=== PATIENT | female | born 1965 | race Caucasian/White ===

== ENCOUNTER 2017-07-25 10:34 | Emergency (ER) | payer BC ==
[2017-07-25 10:50] VITALS: BP 158/87
--- NOTE | 2017-07-25 10:54 | EDM.PDOC ---
ED HPI GENERAL MEDICAL PROBLEM - General Chief Complaint: Back Pain or Injury Stated Complaint: BACK PAIN Time Seen by Provider: 07/25/17 10:48 Source of Information: Reports: Patient History Limitations: Reports: No Limitations - History of Present Illness INITIAL COMMENTS - FREE TEXT/NARRATIVE: HISTORY AND PHYSICAL: []52-year-old female presenting with right lower back pain History of Present Illness: []Patient had been getting laundry of with a basket and twisted and felt the pain instantly yesterday Patient was seen in [place] emergency department yesterday given a shot and a tablet Her discharge instructions tell her to take Flexeril every 8 hours prescription must have been sent to [facility] but she has not picked that up Review of Systems: As per history of present illness and below otherwise all systems reviewed and negative. Past medical history: As per history of present illness and as reviewed below otherwise noncontributory. Surgical history: As per history of present illness and as reviewed below otherwise noncontributory. Social history: No reported history of drug or alcohol abuse. Family history: As per history of present illness and as reviewed below otherwise noncontributory. Physical exam: Alert very pleasant woman who is speaking in full sentences without any shortness of breath HEENT: Atraumatic, normocehpalic, pupils reactive, negative for conjunctival pallor or scleral icterus, mucous membranes moist, throat clear, neck supple, nontender, trachea midline. Lungs: Clear to auscultation, breath sounds equal bilaterally, chest non tender. Heart: S1S2, regular, negative for clicks, rubs, or JVD. Abdomen: Soft, nondistended, nontender. Negative for masses or hepatossplenmegaly. Positive for right costovertebral tenderness that wraps around to the right lower abdomen Pelvis: Stable nontender. Genitourinary: Deferred. Rectal: Deferred Extremities: Atraumatic, negative for cords or calf pain. Neurovascular unremarkable. Neuro: Awake, alert, oriented. Cranial nerves II through XII unremarkable. Cerebellum unremarkable. Motor and sensory unremarkable throughout. Exam nonfocal. Diagnostics: [] Therapeutics: []Norflex IM Toradol 60 IM Impression: []muscle strain Plan: [] Definitive disposition and diagnosis as appropriate pending reevaluation and review of above. 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, Other (see below) (Biofreeze) Right Lower Back Pain Score (Numeric/FACES): 10 - Related Data Allergies Allergy/AdvReac Type Severity Reaction Status Date / Time naproxen sodium Allergy Swelling Verified 07/25/17 10:50 [From Anaprox] watermelon Allergy Anaphylactic Verified 07/25/17 10:50 Shock Cat Scan Dye Allergy Confusion Uncoded 07/25/17 10:50 Some adhesive tapes Allergy Itching Uncoded 07/25/17 10:50 Home Meds: Home Meds Lisinopril 10 mg PO DAILY 08/29/14 [History] Glutathione [l-Glutathione] 1 dose PO DAILY 11/20/14 [History] Diclofenac Sodium [IJD: Diclofenac Sodium] 75 mg PO .TWICE DAILY W MEALS #20 tab.ec 07/25/17 [Rx] Past Medical History Other HEENT History: wears glasses/contacts Other Respiratory History: hx sleep apnea, does not use CPAP, states better since wt loss Other Musculoskeletal History: spinal stenosis Other Endocrine/Metabolic History: states does not have diabetes anymore since wt loss Other Dermatologic History: rosacia Social & Family History - Tobacco Use Smoking Status *Q: Current Every Day Smoker - Alcohol Use Days Per Week of Alcohol Use: 7 Number of Drinks Per Day: 2 Total Drinks Per Week: 14 - Recreational Drug Use Recreational Drug Use: No Drug Use in Last 12 Months: No ED ROS GENERAL - Review of Systems Review Of Systems: ROS reveals no pertinent complaints other than HPI. ED EXAM,LOWER BACK PAIN/INJURY - Physical Exam Exam: See Below (see dictation) Course - Vital Signs Last Recorded V/S: Last Vital Signs Temp 36.3 C 07/25/17 10:47 Pulse 98 07/25/17 10:47 Resp 20 07/25/17 10:47 BP 158/87 H 07/25/17 10:47 Pulse Ox 98 07/25/17 10:47 - Orders/Labs/Meds Orders: Active Orders 24 hr Category Date Time Status Orphenadrine [Norflex] Med 07/25/17 11:00 Active 60 mg IM Q12H Medication Orders Orphenadrine Citrate (Norflex) 60 mg IM Q12H DAVID Last Admin: 07/25/17 11:02 Dose: 60 mg Meds: Medications Generic Name Dose Route Start Last Admin Trade Name Freq PRN Reason Stop Dose Admin Orphenadrine Citrate 60 mg 07/25/17 11:00 07/25/17 11:02 Norflex IM 60 mg Q12H DAVID Administration Discontinued Medications Generic Name Dose Route Start Last Admin Trade Name Freq PRN Reason Stop Dose Admin Ketorolac Tromethamine 60 mg 07/25/17 10:56 07/25/17 11:03 Toradol IM 07/25/17 10:57 60 mg ONETIME ONE Administration Departure - Departure Time of Disposition: 11:17 Disposition: Home, Self-Care 01 Condition: Good Clinical Impression: Low back strain Qualifiers: Encounter type: subsequent encounter Qualified Code(s): S39.012D - Strain of muscle, fascia and tendon of lower back, subsequent encounter - Discharge Information Prescriptions: Diclofenac Sodium [IJD: Diclofenac Sodium] 75 mg PO .TWICE DAILY W MEALS #20 tab.ec Instructions: Muscle Strain, [id number] Referrals: PCP,None [Primary Care Provider] - Forms: ED Department Discharge Additional Instructions: The following information is given to patients seen in the emergency department who are being discharged to home. This information is to outline your options for follow-up care. We provide all patients seen in our emergency department with a follow-up referral. The need for follow-up, as well as the timing and circumstances, are variable depending upon the specifics of your emergency department visit. If you don't have a primary care physician on staff, we will provide you with a referral. We always advise you to contact your personal physician following an emergency department visit to inform them of the circumstance of the visit and for follow-up with them and/or the need for any referrals to a consulting specialist. The emergency department will also refer you to a specialist when appropriate. This referral assures that you have the opportunity for followup care with a specialist. All of these measure are taken in an effort to provide you with optimal care, which includes your followup. Under all circumstances we always encourage you to contact your private physician who remains a resource for coordinating your care. When calling for followup care, please make the office aware that this follow-up is from your recent emergency room visit. If for any reason you are refused follow-up, please contact the [facility] emergency department at and asked to speak to the emergency department charge nurse. You have a muscle strain to your lower back You were given Toradol while in the emergency department Muscle relaxant of Norflex was given Prescription were sent to [facility] Follow-up with your primary care in 2 days If not improving may need to call therapy Note to be off work for 24 hours Return to emergency room as needed as discussed and directed - My Orders Last 24 Hours: My Active Orders 07/25/17 11:00 Orphenadrine [Norflex] 60 mg IM Q12H - Assessment/Plan Last 24 Hours: My Active Orders 07/25/17 11:00 Orphenadrine [Norflex] 60 mg IM Q12H
[2017-07-25] MEDS ORDERED: Ketorolac 60 MG/2 ML SDV IM ONE (10:56)
== END 2017-07-25 11:48 | disposition home or self-care (01) ==
LOC: MW.ED 10:34
DX: S39.012A Strain of muscle, fascia and tendon of lower back, initial encounter (principal); F17.210 Nicotine dependence, cigarettes, uncomplicated; X50.1XXA Overexertion from prolonged static or awkward postures, initial encounter; Z88.5 Allergy status to narcotic agent; Z91.018 Allergy to other foods; Z91.048 Other nonmedicinal substance allergy status; Z79.899 Other long term (current) drug therapy
CPT/HCPCS: 96372; 99283; J1885; J2360; 99282

== ENCOUNTER 2019-04-27 07:18 | Day surgery (SDC) | payer BC ==
[~2019-04-27 07:18] MED LIST: Lactated Ringers 1,000 ML IV SCH
[2019-04-27] MEDS ORDERED: Glycopyrrolate 0.2 MG/ML SDV ONE (07:33)
[2019-04-27] MEDS ORDERED: Propofol 200 MG/20 ML SDV ONE ×2 (07:33→08:43)
[2019-04-27] MEDS ORDERED: Midazolam 1 MG/ML 2 ML SDV ONE (07:33)
[2019-04-27] MEDS ORDERED: Lidocaine 2% 5 ML SDV ONE (07:33)
--- NOTE | 2019-04-27 08:03 | PCM.PREANE ---
Preanesthetic Assessment - Anesthesia/Transfusion/Family Hx Other Type of Anesthesia Reaction Comment: "I woke up very emotional after D&C" Family History of Anesthesia Reaction: No Transfusion History: No Prior Transfusion(s) - Review of Systems General: No Symptoms Pulmonary: No Symptoms Cardiovascular: No Symptoms Neurological: No Symptoms Other: Reports: None - Physical Assessment NPO Status Date: 04/26/19 Height: 5 ft 5 in Weight: 87.09 kg ASA Class: 2 Mental Status: Alert & Oriented x3 Airway Class: Mallampati = 2 Dentition: Reports: Normal Dentition ROM/Head Extension: Full Lungs: Clear to Auscultation, Normal Respiratory Effort Cardiovascular: Regular Rate, Regular Rhythm - Allergies Allergies/Adverse Reactions: Allergies Allergy/AdvReac Type Severity Reaction Status Date / Time Iodinated Contrast Media Allergy Confusion Verified 04/27/19 07:56 naproxen sodium Allergy Swelling Verified 04/27/19 07:56 [From Anaprox] watermelon Allergy Anaphylactic Verified 04/27/19 07:56 Shock Some adhesive tapes Allergy Mild Itching Uncoded 04/27/19 07:57 - Blood Blood Available: No - Anesthesia Plan Pre-Op Medication Ordered: None - Acknowledgements Anesthesia Type Planned: General Anesthesia Pt an Appropriate Candidate for the Planned Anesthesia: Yes Alternatives and Risks of Anesthesia Discussed w Pt/Guardian: Yes Pt/Guardian Understands and Agrees with Anesthesia Plan: Yes PreAnesthesia Questionnaire HEENT History: Reports: Other (See Below) Other HEENT History: wears glasses/contacts Cardiovascular History: Reports: Hypertension Respiratory History: Reports: Other (See Below) Other Respiratory History: hx sleep apnea, does not use CPAP, states better since wt loss Gastrointestinal History: Reports: Colon Polyp, GERD Genitourinary History: Reports: None Musculoskeletal History: Reports: Arthritis Other Musculoskeletal History: spinal stenosis Neurological History: Reports: Concussion Psychiatric History: Reports: Anxiety, Depression, PTSD Endocrine/Metabolic History: Reports: Obesity/BMI 30+ Other Endocrine/Metabolic History: type II diabetes in the past, does not have diabetes anymore since wt loss Hematologic History: Reports: None Immunologic History: Reports: None Oncologic (Cancer) History: Reports: None Dermatologic History: Reports: Other (See Below) Other Dermatologic History: rosacia - Past Surgical History Head Surgeries/Procedures: Reports: None HEENT Surgical History: Reports: Oral Surgery, Tonsillectomy Cardiovascular Surgical History: Reports: None Respiratory Surgical History: Reports: None GI Surgical History: Reports: Colonoscopy, EGD Female Surgical History: Reports: D&C Endocrine Surgical History: Reports: None Neurological Surgical History: Reports: None Musculoskeletal Surgical History: Reports: Arthroscopic Knee Oncologic Surgical History: Reports: None Dermatological Surgical History: Reports: None - SUBSTANCE USE Smoking Status *Q: Current Every Day Smoker Tobacco Use Within Last Twelve Months: Vaping - HOME MEDS Home Medications: Home Meds Lisinopril 10 mg PO DAILY 08/29/14 [History] Kratom 4 tab PO DAILY 04/23/19 [History] - CURRENT (IN HOUSE) MEDS Current Meds: Current Medications Lactated Ringer's (Ringers, Lactated) 1,000 mls @ 125 mls/hr IV [facility] Last Admin: 04/27/19 07:54 Dose: 125 mls/hr Discontinued Medications Glycopyrrolate (Robinul) Confirm Administered Dose 0.2 mg .ROUTE .STK-MED ONE Stop: 04/27/19 07:34 Lidocaine (Xylocaine-Mpf 2%) Confirm Administered Dose 5 ml .ROUTE .STK-MED ONE Stop: 04/27/19 07:34 Midazolam HCl (Versed 1 Mg/Ml) Confirm Administered Dose 2 mg .ROUTE .STK-MED ONE Stop: 04/27/19 07:34 Propofol (Diprivan 20 Ml) Confirm Administered Dose 400 mg .ROUTE .STK-MED ONE Stop: 04/27/19 07:34
[2019-04-27] MEDS ORDERED: Phenylephrine/Normal Saline 100 MCG/ML 10 ML Syringe ONE (08:42)
--- NOTE | 2019-04-27 09:06 | PCM.OPNOTE ---
- General Post-Op/Procedure Note Date of Surgery/Procedure: 04/27/19 Operative Procedure(s): Esophagogastroduodenoscopy with gastric biopsies. Colonoscopy. Pre Op Diagnosis: Progressive gastroesophageal reflux disease. Personal history of colon polyps. Post-Op Diagnosis: Mild chronic gastritis. No esophagitis or hiatal hernia. No evidence of colonic neoplasia. Anesthesia Technique: MAC (ASA II) Primary Surgeon: Rigo Nunez Condition: Good Free Text/Narrative:: DICTATION [id number] CPT CODE 98027/[id number]
--- NOTE | 2019-04-27 09:09 | PCM.POSTAN ---
POST ANESTHESIA ASSESSMENT - MENTAL STATUS Mental Status: Alert, Oriented - VITAL SIGNS Vital Signs: Last Vital Signs Temp 97.2 F 04/27/19 08:56 Pulse 58 L 04/27/19 09:06 Resp 24 H 04/27/19 09:06 BP 92/49 L 04/27/19 09:06 Pulse Ox 95 04/27/19 09:06 - RESPIRATORY Respiratory Status: Respiratory Rate WNL, Airway Patent, O2 Saturation Stable - CARDIOVASCULAR CV Status: Pulse Rate WNL, Blood Pressure Stable - GASTROINTESTINAL GI Status: No Symptoms - POST OP HYDRATION Hydration Status: Adequate & Stable
--- NOTE | 2019-04-27 09:09 | PCM48HPAN ---
Post Anesthesia Note - EVALUATION WITHIN 48HRS OF ANESTHETIC Vital Signs in Normal Range: Yes Patient Participated in Evaluation: Yes Respiratory Function Stable: Yes Airway Patent: Yes Cardiovascular Function Stable: Yes Hydration Status Stable: Yes Pain Control Satisfactory: Yes Nausea and Vomiting Control Satisfactory: Yes Mental Status Recovered: Yes Vital Signs: Last Vital Signs Temp 97.2 F 04/27/19 08:56 Pulse 58 L 04/27/19 09:06 Resp 24 H 04/27/19 09:06 BP 92/49 L 04/27/19 09:06 Pulse Ox 95 04/27/19 09:06
[2019-04-27] MEDS ORDERED: Lactated Ringers 1,000 ML IV SCH (09:15)
[2019-04-27 11:55] VITALS: BP 100/57; PULSE 57
--- NOTE | 2019-04-27 15:48 | OR ---
SURGEON: Rigo Nunez M.D. DATE OF PROCEDURE: 04/27/2019 OPERATION PERFORMED: Esophagogastroduodenoscopy with biopsy. PRIMARY SURGEON: Rigo Nunez MD. ANESTHESIA: MAC. ASA CLASSIFICATION: II. PREOPERATIVE DIAGNOSIS: Chronic progressive gastroesophageal reflux disease. POSTOPERATIVE DIAGNOSES: 1. Mild chronic gastritis. 2. No evidence of hiatal hernia or esophagitis. DESCRIPTION OF PROCEDURE: The patient was taken to the endoscopy room and positioned on the endoscopy table in the left lateral decubitus position. Time-out was called for appropriate identification of the patient and procedure. Monitored anesthesia care was provided. A bite-block was placed between the patient's teeth. The gastroscope was inserted through the bite-block into the oropharynx and advanced without difficulty through the esophagus and stomach into the duodenum. The duodenum shows no acute inflammatory changes or ulcerations. The stomach does show a mild-appearing chronic gastritis. No acute inflammatory changes or ulcerations were noted. The distal stomach was biopsied to look for the presence of Helicobacter pylori. The gastroscope was retroflexed to visualize the proximal stomach. No hiatal hernia was noted from below. No inflammatory changes or ulcerations were noted proximally. The gastroscope was then straightened and slowly withdrawn carefully visualizing the greater and lesser curvatures. Again, no ulcerations were noted. No gastric polyps were encountered. The GE junction is sharply defined at 36 cm from the incisors. No inflammatory changes were noted in the distal esophagus. There did not appear to be any esophageal erosions. The mucosa appeared quite healthy. The esophagus demonstrates good contractility. No mid or proximal lesions were identified. The vocal cords were visualized as the scope was withdrawn. The vocal cords moved symmetrically and no vocal cord lesions were identified. The gastroscope was then removed. The patient tolerated this portion of the procedure well. Following colonoscopy, she was taken to recovery room in stable condition. PASTOR / RONI /[id number]
--- NOTE | 2019-04-27 16:00 | OR ---
SURGEON: Rigo Nunez M.D. DATE OF PROCEDURE: 04/27/2019 OPERATION PERFORMED: Colonoscopy. PRIMARY SURGEON: Rigo Nunez MD. ANESTHESIA: MAC. ASA CLASSIFICATION: II. PREOPERATIVE DIAGNOSIS: Personal history of colon polyps. POSTOPERATIVE DIAGNOSIS: No evidence of neoplasia. DESCRIPTION OF PROCEDURE: With the patient having completed esophagogastroduodenoscopy, she was maintained in the left lateral decubitus position. The colonoscope was inserted into the rectum and advanced with minimal difficulty to the cecum. The cecum was identified by internal landmarks and external pressure. The colonoscope was retroflexed to visualize the ascending colon from below, then straightened and slowly withdrawn. Cecum, ascending colon, hepatic flexure, transverse colon, splenic flexure, descending colon, sigmoid colon, and rectum were very well visualized. No tumors, polyps, diverticula, or angiodysplastic changes were noted anywhere in the lower gastrointestinal tract. The prep was excellent. Visualization was very good. Once the colonoscope was withdrawn to the rectum, it was retroflexed to visualize the anal orifice from above. Again, no tumors or polyps were seen. There were no acute hemorrhoidal changes. The colonoscope was then straightened, the rectum aspirated, and the colonoscope removed. The patient tolerated the procedure well and was taken to recovery room in stable condition. PASTOR / RONI /[id number]
== END 2019-04-27 09:30 | disposition home or self-care (01) ==
LOC: MW.SDS 07:18
PROVIDERS: ATTEND Surgery
DX: Z12.11 Encounter for screening for malignant neoplasm of colon (principal); K29.50 Unspecified chronic gastritis without bleeding; K21.9 Gastro-esophageal reflux disease without esophagitis; I10 Essential (primary) hypertension; E11.9 Type 2 diabetes mellitus without complications; E78.5 Hyperlipidemia, unspecified; F41.9 Anxiety disorder, unspecified; F32.9 Major depressive disorder, single episode, unspecified; F43.10 Post-traumatic stress disorder, unspecified; G47.30 Sleep apnea, unspecified; M17.12 Unilateral primary osteoarthritis, left knee; F17.210 Nicotine dependence, cigarettes, uncomplicated; E66.9 Obesity, unspecified; Z68.32 Body mass index [BMI] 32.0-32.9, adult; Z91.018 Allergy to other foods; Z91.041 Radiographic dye allergy status; Z88.6 Allergy status to analgesic agent; Z79.899 Other long term (current) drug therapy; Z86.010 Personal history of colon polyps
CPT/HCPCS: 43239; 45378; J2001; J2250; J2370; J2704; J3490; J7120